=== PATIENT | female | born 1965 | race Caucasian/White ===

== ENCOUNTER 2019-05-21 15:13 | Emergency (ER) | payer BC ==
[2019-05-21 16:02] VITALS: BP 152/75
--- NOTE | 2019-05-21 16:27 | UC ---
Respiratory Complaint HPI - HPI Summary HPI Summary: 53-year-old woman comes in with a chief complaint of upper respiratory tract infection symptoms for 5-6 days. Patient diagnosed with the flu 6 days ago had flu symptoms does have improved she's had fevers she's had rhinorrhea. She feels like it's moved into her chest and at night she feels congestion in her chest. She's had a history of pneumonia in the past and she says this is what it felt like in the beginning of her pneumonia as in the past. She is not a smoker. Does not have asthma or COPD. - History of Current Complaint Chief Complaint: UCGeneralIllness Stated Complaint: COUGH,CONGESTION Time Seen by Provider: 05/21/19 16:04 Hx Last Menstrual Period: 03/23/19 perimenopausal, no risk of Pain Intensity: 0 - Allergies/Home Medications Allergies/Adverse Reactions: Allergies Allergy/AdvReac Type Severity Reaction Status Date / Time No Known Allergies Allergy Verified 05/21/19 16:02 PMH/Surg Hx/FS Hx/Imm Hx Previously Healthy: Yes Respiratory History: Pneumonia - Surgical History Surgical History: Yes Surgery Procedure, Year, and Place: gallbladder - Family History Known Family History: Positive: Hypertension - Social History Alcohol Use: Occasionally Substance Use Type: None Smoking Status (MU): Never Smoked Tobacco - Immunization History Most Recent Influenza Vaccination: several years ago Most Recent Tetanus Shot: within last 10 years Most Recent Pneumonia Vaccination: never Review of Systems All Other Systems Reviewed And Are Negative: Yes Constitutional: Positive: Fever, Other - see hpi Skin: Positive: Negative Eyes: Positive: Negative ENT: Positive: Nasal Discharge, Sinus Congestion Respiratory: Positive: Cough, Other - see hpi Cardiovascular: Positive: Negative Gastrointestinal: Positive: Negative Motor: Positive: Negative Neurovascular: Positive: Negative Musculoskeletal: Positive: Negative Neurological: Positive: Negative Psychological: Positive: Negative Is Patient Immunocompromised?: No Physical Exam Triage Information Reviewed: Yes Appearance: Well-Appearing, No Pain Distress, Well-Nourished Vital Signs: Initial Vital Signs Temp 98.1 F 05/21/19 15:57 Pulse 88 05/21/19 15:57 Resp 17 05/21/19 15:57 BP 152/75 05/21/19 15:57 Pulse Ox 98 05/21/19 15:57 Vital Signs Reviewed: Yes Eye Exam: Normal Eyes: Positive: Conjunctiva Clear ENT: Positive: Pharyngeal erythema, Nasal congestion, Nasal drainage, TMs normal Neck: Positive: Supple Respiratory: Positive: Lungs clear, Normal breath sounds, No respiratory distress Cardiovascular: Positive: RRR Neurological: Positive: Alert, Muscle Tone Normal Psychological: Positive: Age Appropriate Behavior Skin Exam: Normal Respiratory Course/Dx - Course Course Of Treatment: Pipe Organ Tuner And Repairer: Rc Keen F, ([id number]) Feed Blender: GIORGI, ( NUANCE) Report Date: 05/21/2019 16:26:00 Report Status: Final ====== Start of Report Content Patient Name: BUD CERVANTES Medical Record#: [id number] Ordering Physician: Rashard Hernandez MD Acct.#: [id number] : 09/1965 Age: 53 Sex: F Location: [facility] Exam Date: 05/21/19 160 ADM Status: REG ER Order Information: CHEST PA LAT 2 VWS Accession Number: [id number] CPT: 60494 INDICATION: Chest congestion. COMPARISON: Comparison is made with a prior chest x-ray study from May 24, 2010. TECHNIQUE: Dual- energy PA and lateral views of the chest were obtained. FINDINGS: The heart is within normal limits in size. Mediastinal and hilar contours appear within normal limits. The lungs are clear. No pleural effusion is seen. IMPRESSION: NO EVIDENCE FOR ACTIVE CARDIOPULMONARY DISEASE. <Electronically signed by Rc Keen MD in OV> 1621 Dictated By: Rc Keen MD Dictated Date/Time: 05/21/19 162 Transcribed Date/Time: 05/21/19 1621 Copy to: CC:No Primary Care Phys,NOPCP ; Rashard Hernandez MD Imaging - [facility] Imaging - [facility] Imaging - [facility] [address] [id number] [place] [id number] ph ([phone]) ph [phone]) ph ([phone]) End of Report Content DISCUSSED VIRAL VERSES BACTERIAL INFECTIONS AND THE ROLE OF ANTIBIOTICS. THE PATIENT PREFERS TO BE ON ANTIBIOTICS AT THIS TIME. Discussed the chest x-ray results with the patient. If patient does not improve or worsens she is to get reevaluated. - Differential Dx/Diagnosis Provider Diagnosis: Bronchitis with bronchospasm Discharge ED - Sign-Out/Discharge Documenting (check all that apply): Patient Departure All imaging exams completed and their final reports reviewed: Yes - Discharge Plan Condition: Stable Disposition: HOME Prescriptions: Albuterol HFA INHALER* [Ventolin HFA Inhaler*] 2 puff INH Q4H PRN #1 mdi PRN Reason: Wheezing Azithromyxin CHRISTOPHER (NF) [Z-Christopher (Zithromax) 250 mg tabs #6] 2 tab PO .TODAY, THEN 1 DAILY #6 tab Patient Education Materials: Acute Bronchitis (ED), Bronchospasm (ED) Referrals: [facility]FERR[facility] [Outside] Additional Instructions: FOLLOW UP WITH YOUR DOCTOR IF NOT COMPLETELY IMPROVED. GET REEVALUATED SOONER IF NOT IMPROVING OR WORSE OR ANY QUESTIONS OR CONCERNS. - Billing Disposition and Condition Condition: STABLE Disposition: Home
== END 2019-05-21 16:44 | disposition home or self-care (01) ==
LOC: UCCORT 15:13
DX: J20.9 Acute bronchitis, unspecified (principal); R09.81 Nasal congestion
CPT/HCPCS: 71046; 99202; G0463